=== PATIENT | female | born 1990 | race Caucasian/White ===

== ENCOUNTER 2022-07-05 09:32 | Emergency (ER) | payer BC, MEDICAID, SELFPAY ==
[2022-07-05 09:44] VITALS: BP 148/93; PULSE 84; RESP 16; TEMP 36.8; O2SAT 98; BMI 27.1
--- NOTE | 2022-07-05 10:29 | ECG_ITS ---
[facility] Test Date: 2022-07-05 Pat Name: Alma Delia Red Department: Room: Gender: Female Greenskeeper: : 1990 Requested By: Jimmy Caraballo Order Number: [id number] Nacho MD: Bernardo Hinton M.D. Measurements Intervals [place] Rate: 75 P: 66 HI: 134 QRS: 72 QRSD: 100 T: 67 QT: 387 QTc: 432 Interpretive Statements SINUS RHYTHM POSSIBLE RIGHT VENTRICULAR CONDUCTION DELAY [RSR (QR) IN V1/V2] No previous ECG available for comparison Electronically Signed On 07-05-2022 15:16:15 DRY CHARGE PROCESS ATTENDANT by Bernardo Hinton M.D. [id number]
--- NOTE | 2022-07-05 10:37 | CT_ITS ---
WS: [id number] CT HEAD NONCONTRAST HISTORY: syncopal episodes TECHNIQUE: Contiguous axial imaging performed through the brain in 2.5 mm imaging. Bone and soft tiss ue windows. Sagittal and coronal reformats reviewed. All CT scans at [facility] use at least one of these dose optimization techniques: automated exposure control; mA and/or kV adjustment per pa tient size (includes targeted exams where dose is matched to clinical indication); or iterative recon struction. DLP: 1004.88 mGy.cm COMPARISON: None available. No acute intracranial hemorrhage, midline shift or mass effect. No atrophy or prior infarcts or herniation. Ventricles: Normal size with no hydrocephalus. Paranasal sinuses: As visualized are clear. Mastoid air cells: Well pneumatized. Calvarium and scalp: Skull is intact with no soft tissue edema or swelling. CT/CT head wo con* [id number] IMPRESSION: Negative head CT.
--- NOTE | 2022-07-05 10:38 | W.ED.SYNCOPE ---
HPI - Syncope General: Chief Complaint: Syncope Stated Complaint: possible syncope and back pain Time Seen by Provider: 07/05/22 10:09 History of Present Illness: Patient is a 32-year-old female who comes to the ED with back pain and syncopal episodes. Patient states that over the past 2 days she has had 1 syncopal episode and today she had a near syncopal episode. 2 days ago she was walking in a store and then started to feel little nauseous, dizzy and her vision started tunneling. Boyfriend was present and says she started turning pale white and got a little sweaty and he was able to get to her and help her down to the floor. She did not fall and hit her head. She was only out for less than a minute and then came to. Denies any seizure-like activity or any bladder or bowel incontinence during syncopal episode. Today while at work she was wrapping up some firewood and started getting the same feeling dizzy, nauseous and her vision started tunneling. She sat down and symptoms resolved she denies having an loss of consciousness today. Denies any chest pain or shortness of breath preceding or after syncopal episode. She also states that for the past week she has been having bilateral lower back pain that she is unsure if it is related to work and the lifting that she does. Associated symptoms: Deny abdominal pain, chest pain, fever(s), headache(s) or nausea Review of Systems Const: Denies: fever(s), chills or fatigue Eyes: Denies: change in vision or eye discomfort ENMT: Denies: throat pain, odynophagia, nasal discharge or nasal congestion Card: Reports: syncope and pre-syncope; Denies: chest pain, palpitations, edema, swelling of feet/ankles, dyspnea on exertion or orthopnea Resp: Denies: dyspnea, productive cough or non-productive cough GI: Denies: abdominal pain, nausea, vomiting, diarrhea, constipation or hematochezia : Denies: flank pain, dysuria or hematuria Musc: Denies: neck pain, back pain or extremity swelling Skin/Breast: Denies: rash or new lesions Neuro: Denies: headache(s), numbness in extremities or weakness in extremities [facility] ED PFSH: Medical History (Updated 07/07/22 @ 07:19 by FRANKI Guillen) No pertinent family history Surgical History (Updated 07/07/22 @ 07:19 by FRANKI Guillen) No pertinent past surgical history Physical Exam Const: COMMON NORMALS: no acute distress, patient oriented x3, healthy appearing and alert GENERAL APPEARANCE: cooperative and comfortable HENMT: COMMON NORMALS: normocephalic HEAD & SCALP: normocephalic MOUTH: Normal oral and palatal mucosa present THROAT: posterior oropharynx normal and uvula midline Neck/C-Spine: COMMON NORMALS: supple GENERAL: Yes normal visual inspection Resp: COMMON NORMALS: normal respiratory effort, No retractions, No use of accessory muscles and clear to auscultation bilaterally AUSCULTATION: clear to auscultation bilaterally Cardio: COMMON NORMALS: regular rate, regular rhythm, S1 normal heart sound present, S2 normal heart sound present, No gallops present (Cardio), No clicks present (Cardio), No murmurs present (Cardio) and Peripheral pulses 2+ throughout RATE: regular rate RHYTHM: regular rhythm HEART SOUNDS: S1 normal heart sound present and S2 normal heart sound present PERIPHERAL PULSES: Peripheral pulses 2+ throughout GI: COMMON NORMALS: Normal to inspection, nondistended, normoactive bowel sounds present, Soft to palpation, non-tender and no masses PALPATION: Yes Soft to palpation : COMMON NORMALS: Yes no CVA tenderness BLADDER/KIDNEY EXAM: Yes no CVA tenderness Back/Pelvis: COMMON NORMALS: no CVA tenderness LUMBAR SPINE/LOWER BACK: Yes paraspinal muscle tenderness Lumbar paraspinal muscle tenderness: bilateral Extremity: COMMON NORMALS: normal to inspection Neuro: COMMON NORMALS: patient oriented x3 SENSORIUM/ORIENTATION: Yes alert GAIT: Yes Normal gait present Skin: GENERAL SKIN EXAM: dry skin Course Vital Signs: Vital signs: Vital Signs Temperature 98.2 F 07/05/22 09:44 Pulse Rate 76 07/05/22 12:18 Respiratory Rate 14 07/05/22 12:18 Blood Pressure 134/87 07/05/22 12:18 Pulse Oximetry 98 07/05/22 12:18 Oxygen Delivery Me thod 07/05/22 09:44 MDM - Syncope Medical Decision Making Patient is a 32-year-old female who comes to the ED with back pain and syncopal episodes. Patient states that over the past 2 days she has had 1 syncopal episode and today she had a near syncopal episode. 2 days ago she was walking in a store and then started to feel little nauseous, dizzy and her vision started tunneling. Boyfriend was present and says she started turning pale white and got a little sweaty and he was able to get to her and help her down to the floor. She did not fall and hit her head. She was only out for less than a minute and then came to. Denies any seizure-like activity or any bladder or bowel incontinence during syncopal episode. Today while at work she was wrapping up some firewood and started getting the same feeling dizzy, nauseous and her vision started tunneling. She sat down and symptoms resolved she denies having an loss of consciousness today. Denies any chest pain or shortness of breath preceding or after syncopal episode. Vitals are stable. She has some bilateral lumbar paraspinal muscle tenderness, but rest of exam of patient is benign and she appears nontoxic in no acute distress or pain. Head CT is normal, labs are unremarkable. EKG showed normal sinus rhythm with no other acute findings. Patient was diagnosed with a low back strain and syncopal episode which is likely vasovagal. She was stable for discharge home and sent with a prescription for a muscle relaxant and some ibuprofen 800 mg. Told to follow-up with her PCP within the next week. Patient still agree with plan. Lab Data I reviewed the patient's lab results. 07/05/22 11:27 07/05/22 11:[address] 07/05/22 10:37 IMPRESSION: Negative head CT. Laboratory Results WBC 8.8 10^3/uL (4.0-10.0) 07/05/22 11: RBC 4.24 10^6/uL (4.1-5.3) 07/05/22 11: Hgb 12.2 g/dL (11.5-15.3) 07/05/22 11: Hct 38.5 % (37.0-47.0) 07/05/22 11: MCV 90.8 fl (81-99) 07/05/22 11: MCH 28.8 pg (28.0-34.0) 07/05/22 11: MCHC 31.7 g/dL (30.0-36.0) 07/05/22 11:27 RDW 12.7 % (12.1-15.1) 07/05/22 11:27 Plt Count 238 10^3/cmm (130-400) 07/05/22 11:27 MPV 9.9 fL (7.4-10.4) 07/05/22 11:27 Neut % (Auto) 70.1 % 07/05/22 11:27 Lymph % (Auto) 23.4 % 07/05/22 11:27 [place] % (Auto) 3.9 % 07/05/22 11:27 Eos % (Auto) 2.2 % 07/05/22 11:27 Baso % (Auto) 0.2 % 07/05/22 11:27 Neut # (Auto) 6.14 10^3/uL (1.8-7.7) 07/05/22 11:27 Lymph # (Auto) 2.1 10^3/uL (0.8-4.8) 07/05/22 11:27 [place] # (Auto) 0.3 10^3/uL (0.2-0.9) 07/05/22 11:27 Eos # (Auto) 0.2 10^3/uL (0.0-0.8) 07/05/22 11:27 Baso # (Auto) 0.0 10^3/uL (0.0-0.1) 07/05/22 11:27 Nucleated RBC % (auto) 0 % 07/05/22 11: Nucleated RBCs # 0.0 /100WBC 07/05/22 11:27 Sodium 136 mmol/L (136-145) 07/05/22 11:27 Potassium 4.1 mmol/L (3.5-5.1) 07/05/22 11:27 Chloride 100 mmol/L (98-107) 07/05/22 11:27 Carbon Dioxide 24 mmol/L (22-29) 07/05/22 11:27 Anion Gap 16.1 (5-19) 07/05/22 11:27 BUN 10 mg/dL (6-20) 07/05/22 11:27 Creatinine 0.5 mg/dL (0.5-0.9) 07/05/22 11:27 GFR Calculation 143.9 mL/min (90-130) H 07/05/22 11:27 Glucose 92 mg/dL (65-115) 07/05/22 11:27 Calculated Osmolality 281 mOsm/kg (285-295) L 07/05/22 11:27 Calcium 9.1 mg/dL (8.5-10.5) 07/05/22 11:27 Total Bilirubin 0.2 mg/dL (0.15-1.2) 07/05/22 11:27 AST 14 U/L (0-32) 07/05/22 11:27 ALT 10 U/L (0-33) 07/05/22 11:27 Alkaline Phosphatase 67 U/L (35-105) 07/05/22 11:27 Total Protein 7.8 g/dL (6.6-8.7) 07/05/22 11: Albumin 4.4 g/dL (3.5-5.2) 07/05/22 11: Globulin 3.4 g/dL (1.3-4.6) 07/05/22 11:27 HCG, Qual Negative (Negative) 07/05/22 11:27 Urine Color Yellow (Yellow) 07/05/22 10:58 Urine Appearance Clear (CLEAR) 07/05/22 10:58 Urine pH 5 (5-7) 07/05/22 10:58 Ur Specific [place] 1.015 (1.005-1.030) 07/05/22 10:58 Urine Protein Neg (Negative) 07/05/22 10:58 Urine Glucose (UA) Norm (Normal) 07/05/22 10:58 Urine Ketones Negative (Negative) 07/05/22 10:58 Urine Blood Neg (Negative) 07/05/22 10:58 Urine Nitrate Negative (Negative) 07/05/22 10:58 Urine Bilirubin Neg (Negative) 07/05/22 10:58 Urine Urobilinogen Norm mg/dL (Negative) 07/05/22 10:58 Ur Leukocyte Esterase Negative (Negative) 07/05/22 10:58 Discharge Plan Discharge Patient Disposition: Home Clinical Impression: Syncopal episodes Qualifiers: Syncope type: vasovagal syncope Qualified Code(s): R55 - Syncope and collapse Low back strain Qualifiers: Encounter type: initial encounter Qualified Code(s): S39.012A - Strain of muscle, fascia and tendon of lower back, initial encounter Condition: Stable Prescriptions: New cyclobenzaprine 10 mg tablet 10 mg PO BID PRN (Reason: muscle spasm) Qty: 20 0RF ibuprofen 800 mg tablet 800 mg PO Q8H PRN (Reason: pain) Qty: 20 0RF Discharge Orders: Discharge ED (Routine); Ordered 07/05/22 Ordered By: Jimmy Caraballo Discharge Diet: Regular Discharge Activity: Increase activity as tolerated Activity Restrictions/Additional Instructions: Follow-up with medical provider as directed in the next 5 to 7 days for reevaluation. Take medications as prescribed. Return to the ER or your medical provider if condition worsens. Please read and understand discharge instructions. Thank you for choosing [facility] for your healthcare needs today. Please realize this is an emergency room and that we are providing you with a medical screening exam and this may not be complete and all inclusive of all the testing and or work up that you may need to determine your ailment or severity of your illness. It is very important that you follow up as instructed or that you return to the Emergency Department should you have concerns or if your condition changes or worsens in any way. Coding Level of Care Code ED Title Searcher for Benjie Lewis Exam Comprehensive
[2022-07-05 11:03] LABS: Add Urine Microscopic? NO; Charge for UA Resulting for Rev
[2022-07-05 11:06] LABS: Specific Gravity, Urine 1.015 (1.005-1.030); Urine Appearance Clear (CLEAR); Urine Color Yellow (Yellow); pH Urine 5 (5-7)
[2022-07-05 11:07] LABS: Bilirubin Urine Neg (Negative); Blood Urine Neg (Negative); Glucose Urine UA Norm (Normal); Ketones Urine Negative (Negative); Leukocyte Esterase Urine Negative (Negative); Nitrate Urine Negative (Negative); Protein Urine Neg (Negative); Urobilinogen Urine Norm (Negative)
[2022-07-05] MEDS: ketorolac 60 mg/2 mL INJ IM (11:12)
[2022-07-05] MEDS: orphenadrine 30 mg/mL Inj 2 mL 60 MG IM (11:13)
[2022-07-05 11:39] LABS: Basophils % 0.2 %; Eosinophils # 0.2 10^3/uL (0.0-0.8); Eosinophils % 2.2 %; Hematocrit 38.5 % (37.0-47.0); Hemoglobin 12.2 g/dL (11.5-15.3); Lymphocytes # 2.1 10^3/uL (0.8-4.8); Lymphocytes % 23.4 %; Mean Corpuscular HGB Conc 31.7 g/dL (30.0-36.0); Mean Corpuscular Hemoglobin 28.8 pg (28.0-34.0); Mean Corpuscular Volume 90.8 fl (81-99); Mean Platelet Volume 9.9 fL (7.4-10.4); Monocytes # 0.3 10^3/uL (0.2-0.9); Monocytes % 3.9 %; Neutrophils # 6.14 10^3/uL (1.8-7.7); Neutrophils % 70.1 %; Nucleated Red Blood Cells % 0 %; Platelet Count 238 10^3/cmm (130-400); Red Blood Count 4.24 10^6/uL (4.1-5.3); Red Cell Distribution Width 12.7 % (12.1-15.1); White Blood Count 8.8 10^3/uL (4.0-10.0)
[2022-07-05 11:51] LABS: HCG, Serum Qual Negative (Negative)
[2022-07-05 11:58] LABS: Alanine Aminotransferase 10 U/L (0-33); Albumin Level 4.4 g/dL (3.5-5.2); Alkaline Phosphatase 67 U/L (35-105); Anion Gap 16.1 (5-19); Aspartate Amino Transferase 14 U/L (0-32); Blood Urea Nitrogen 10 mg/dL (6-20); Calcium 9.1 mg/dL (8.5-10.5); Carbon Dioxide 24 mmol/L (22-29); Chloride 100 mmol/L (98-107); Globulin 3.4 g/dL (1.3-4.6); Glomerular Filtration Rate 143.9 mL/min (90-130); Glucose 92 mg/dL (65-115); Osmolality Calculated 281 mOsm/kg (285-295); Potassium 4.1 mmol/L (3.5-5.1); Sodium 136 mmol/L (136-145); Total Bilirubin 0.2 mg/dL (0.15-1.2); Total Protein 7.8 g/dL (6.6-8.7)
[2022-07-05 12:18] VITALS: BP 134/87; PULSE 76; RESP 14; O2SAT 98
== END 2022-07-05 12:18 | disposition home or self-care (01) ==
PROVIDERS: Emergency Provider Physician Assistant
DX: R55 Syncope and collapse (principal); S39.012A Strain of muscle, fascia and tendon of lower back, initial encounter; X58.XXXA Exposure to other specified factors, initial encounter
CPT/HCPCS: 36415; 70450; 80053; 81003; 84703; 85025; 93005; 96372; 99285; J1885; J2360